=== PATIENT | male | born 1955 | race Two or more races ===

== ENCOUNTER 2019-10-10 19:29 | Inpatient (IN) | payer OTHER ==
[~2019-10-10] VITALS: Ht 170.2 cm; Wt 99.9 kg
[2019-10-10 21:17] LABS: BASOPHIL % 0 % (0-2); PLATELET COUNT 204 x10^3mcL (130-400); RED CELL DISTRIBUTION WIDTH 16.1 % (11.5-14.5)
[2019-10-10 21:21] LABS: CARBON DIOXIDE 22.9 mmol/L (21-32); CREATININE SERUM 1.7 mg/dL (0.7-1.3)
[2019-10-10 21:26] LABS: ALBUMIN 3.6 g/dL (3.4-5.0); BILIRUBIN TOTAL 2.4 mg/dL (0.20-1.00); TOTAL PROTEIN, SERUM 7.9 g/dL (6.4-8.2)
[2019-10-11 00:55] LABS: CHOLESTEROL/HDL RATIO 8.7
[2019-10-11 01:16] LABS: T3 TOTAL 0.97 ng/mL
[2019-10-11 01:21] LABS: FREE T4 1.41 ng/dL (0.76-1.46); FREE THYROXINE INDEX 3.6 ug/dL (1.4-4.5)
--- NOTE | 2019-10-11 01:55 | NUR ---
PT MEDICATED PER MD ORDER SEE EMAR. VITAL SIGNS STABLE. RESPIRATIONS EVEN AND UNLABORED. NO ACUTE DISTRESS NOTED.
--- NOTE | 2019-10-11 02:41 | NUR ---
MEDICATED ORDERED. PT. STILL C/O INTERMITTENT ABDOMINAL PAIN. A/A/O. NO ACUTE DISTRESS NOTED.
--- NOTE | 2019-10-11 02:42 | NUR ---
FOR ADMIT . ALL BELONGINGS WITH PT.
[2019-10-11] MEDS ORDERED: CARDURA4 MG PO (03:19)
[2019-10-11] MEDS ORDERED: LOVASTATIN20 MG PO (03:19)
[2019-10-11] MEDS ORDERED: TRADJENTA5 M1 PO (03:19)
[2019-10-11] MEDS ORDERED: NOR5 PO (03:19)
[2019-10-11] MEDS ORDERED: METFORMIN HCL1000 MG PO (03:20)
[2019-10-11] MEDS ORDERED: METOPROLOL TAR100 MG PO (03:20)
[2019-10-11] MEDS ORDERED: LISINOPRIL40 MG PO (03:20)
[2019-10-11 04:20] LABS: PLATELET COUNT 175 x10^3mcL (130-400)
[2019-10-11 04:21] LABS: BASOPHIL % 0 % (0-2); RED CELL DISTRIBUTION WIDTH 16.3 % (11.5-14.5)
[2019-10-11 04:28] VITALS: BP 148/80
[2019-10-11 04:39] LABS: microscopic required? YES; urine erythrocyte NEGATIVE (NEGATIVE)
[2019-10-11 04:40] LABS: BILIRUBIN TOTAL 2.8 mg/dL (0.20-1.00); CALCIUM 8.4 mg/dL (8.5-10.1); CARBON DIOXIDE 23.5 mmol/L (21-32); CREATININE SERUM 1.8 mg/dL (0.7-1.3); POTASSIUM SERUM 3.9 mmol/L (3.5-5.1); TOTAL PROTEIN, SERUM 6.9 g/dL (6.4-8.2)
--- NOTE | 2019-10-11 04:43 | NUR ---
RECIEVED PT FROM ED. PT IN MILD DISTRESS WITH ABD PAIN 3/10, RADIATING TO THE BACK, INTERMITTING AND SHARP, WILL MEDICATE PER EMAR. A/O X4. TELE #29, NSR. DENIES ANY CHEST PAIN OR PRESSURE. PULSES ARE PRESENT. NO EDEMA NOTED. LUNGS CLEAR IN ALL FEILDS. ON RA, DENIES ANY SOB. EQUAL CHEST RISE AND FALL. BOWEL SOUNDS ARE PRESENT. TENDER ON MID ABD. VOIDS FREELY. SKIN INTACT. IV ON LAC, FLUIDS RUNNING. MRSA OBTAINED. EDUCATED PT ON NPO STATUS. QUESTIONS AND CONCERN ADDRESSED. WILL CONTINUE TO MONITOR PT.
[2019-10-11 04:56] LABS: AMPHETAMINE QUAL UR NONE DETECTED (See below)
--- NOTE | 2019-10-11 06:11 | NUR ---
PT IS RESTING IN BED. STATES PAIN IS STILL THERE 3/10, DULL, BUT IS MORE TOLERABLE AND HE FEELS OK AT THE MOMENT. NO OTHER EVENTS OCCURED DURING SHIFT. PT BEEN KEPT NPO. BED IS AT LOWEST SETTING. CALL LIGHT WITHIN REACH. WILL ENDORSE TO AM NURSE.
--- NOTE | 2019-10-11 07:15 | NUR ---
RECIEVED REPORT FROM NOC NURSE. PATIENT IN BED AWAKE ALERT AND ORIENTED. ABLE TO MAKE NEEDS KNOWN. PATIENT REPORTS ABD PAIN UPON PALPATION. PATIENT CONTINUES TO BE NPO AND IS RECIEVED NS FLUIDS AT 150/HOUR. PATIENT CONTINUES TO REMAIN NPO. BED IN THE LOW POSITION. CALL LIGHT WITHIN REACH. PATIENT AWARE OF NPO STATUS. SAFETY PRECAUTIONS IN PLACE. WILL CONTINUE TO MONITOR.
[2019-10-11 08:29] VITALS: BP 152/102
--- NOTE | 2019-10-11 09:22 | NUR ---
CONSENT SIGNED FOR SURGERY AND PLACED IN PATIENT'S CHART.
[2019-10-11 12:29] VITALS: BP 174/84
--- NOTE | 2019-10-11 15:00 | NUR ---
MONOLOGIST CALLED THAT THE PATIENT'S HR WENT TO 170'S. WENT TO CHECK THE PATIENT AND SAW PATIENT TRYING TO SIT UP AT THE EDGE OF THE BED AND SOB. O2 WAS NASAL CANNULA CAME OFF. ASSISTED BACK TO BED AND AND PUT THE O2 BACK. ASKED WHERE HE WAS AND STATED THAT HE'S IN THE HOSPITAL. V/S 100/59 SAT.97 AT O2 2 L N/C BUT PATIENT STILL SOB. CHANGED TO 100% NON REBREATHER. CALLED TO AND MADE AWARE.
--- NOTE | 2019-10-11 15:30 | NUR ---
CHECKED PATIENT AND NO SIGNS OF SOB AND AND REPORT GIVEN TO BENNY DE SANTIAGO IN CHARGE OF THE PATIENT. MONITOR SHOWS [address]
[2019-10-11 16:33] VITALS: BP 118/76
--- NOTE | 2019-10-11 18:21 | NUR ---
PATIENT CURRENTLY OBSERVED SITTING IN BED. FRIEND SITTING AT BEDSIDE. PATIENT AWAKE ALERT AND ORIENTED. NO REPORT OF PAIN AT THIS TIME. ZOSYN INFUSING TO LAC AT 100/HOUR. BP CURRENTLY AT 111/67 MAP OF (77). WILL ENDORSE CARE TO NIGHT NURSE.
--- NOTE | 2019-10-11 19:30 | NUR ---
PT IS A/O x4. TELE #29, NSR. DENIES ANY CHEST PAIN OR PRESSURE. PULSES ARE PRESENT. NO EDEMA NOTED. LUNGS CLEAR IN ALL BETANCOURT. ON RA, DENIES ANY SOB. EQUAL CHEST RISE AND FALL. NO SIGN OF RESP DISTRESS. BOWEL SOUNDS ARE PRESENT x4. COMPLAIN OF ABD TENDERNESS WHEN MOVED OR WHEN PALPATED. VOIDS FREELY. SKIN IS WARM AND INTACT. DENIES ANY PAIN AT THIS TIME. IV ON LAC INTACT AND PATENT. NO SIGN OF INFILTRATION OR IRRITATION. BED IS AT LOWEST SETTING. CALL LIGHT WITHIN REACH. WILL CONTINUE TO MONITOR.
[2019-10-11 21:17] VITALS: BP 107/71
--- NOTE | 2019-10-12 01:22 | NUR ---
PT IS RESTING IN BED. STATES ABD PAIN IS MORE TOLERABLE RATING AT A 2/10. IV INTACT AND PATENT. BED IS AT LOWEST SETTING. CALL LIGHT WITHIN REACH. WILL CONTINUE TO MONTIOR.
[2019-10-12 05:07] VITALS: BP 150/94
[2019-10-12 06:24] LABS: PLATELET COUNT 138 x10^3mcL (130-400)
[2019-10-12 06:34] LABS: CALCIUM 8.1 mg/dL (8.5-10.1); CARBON DIOXIDE 24.6 mmol/L (21-32); CREATININE SERUM 1.7 mg/dL (0.7-1.3); MAGNESIUM 1.9 mg/dL (1.8-2.4); PHOSPHOROUS 3.1 mg/dL (2.5-4.9); POTASSIUM SERUM 3.6 mmol/L (3.5-5.1)
[2019-10-12 06:47] LABS: RED CELL DISTRIBUTION WIDTH 16.3 % (11.5-14.5)
--- NOTE | 2019-10-12 07:03 | NUR ---
PT IS RESTING IN BED. CRITICAL WBC OF 21 WAS GIVEN TO MD GAY. NO ACUTE EVENT OCCURED AT NIGHT. BED IS AT LOWEST SETTING. CALL LIGHT WITHIN REACH. WILL ENDORSE TO AM NURSE.
--- NOTE | 2019-10-12 07:30 | NUR ---
RECEIVED PT IN BED A/A/OX4 DENIES JHAVERI. RESP EVEN AND UNLABORED FOUND ON O2 AT 2L/MON VIA NC. INITIATED TITRATION OFF O2 BY DECREASING O2 TO 1L/MIN. NSR ON TELE HR 75. DENIES ANY CP/PRESSURE AT THIS TIME. NO EDEMA NOTED WITH IVF TO LAC. NPO, S/P ERCP POD1 WITH ELEVATED LIPASE. ABD DISTENDED AND TENDER WITH HYPOACTIVE BS X4. DENIES ANY N/V AT THIS TIME. VOIDING FREELY USES URINAL NOTED WITH DARK IMELDA URINE. ABLE TO REPOSITION SELF IN BED. DECREASE ACTIVITY D/T C/O INCREASE PAIN WITH MOBILITY. ENCOURAGE INCREASING ACTIVITY. CALL LIGHT IN REACH NEEDS ATTENDED TO.
[2019-10-12 08:40] VITALS: BP 152/89
--- NOTE | 2019-10-12 10:00 | NUR ---
PT C/O PAIN TO ABD 04/13, MEDICATED PER EMAR WITH NORCO. CALL LIGHT IN REACH NEEDS ATTENDED TO.
[2019-10-12 10:03] LABS: BAND NEUTROPHIL 12 % (0-10); BASOPHIL 0 % (0-2); MONOCYTE 7 % (0-7); SEGMENTED NEUTROPHILS 79 % (37-75); rbc morphology (normal/abnorm) ABNORMAL (NORMAL)
[2019-10-12 10:04] LABS: PLATELET MORPHOLOGY PLATELETS DECREASED; ovalocyte/elliptocyte 1+; tear drop cell (dacryocyte) 1+
[2019-10-12 12:35] VITALS: BP 155/97
--- NOTE | 2019-10-12 14:25 | NUR ---
PT RESTING AT THIS TIME. DENIES DISCOMFORT. CALL LIGHT IN REACH NEEDS ATTENDED TO.
--- NOTE | 2019-10-12 16:00 | NUR ---
PT C/O MOD PAIN 04/13 TO ABD AREA. MEDICATED WITH NORCO PO PER EMAR. DENIES ANY N/V AT THIS TIME. PT WITH ONCREASE IN PAIN D/T INCREASE IN ACTIVITY. CALL LIGHT IN REACH NEEDS ATTENDED TO.
[2019-10-12 16:56] VITALS: BP 98/64
[2019-10-12 16:58] VITALS: BP 145/88
--- NOTE | 2019-10-12 18:28 | NUR ---
PT RESTING IN BED AT THIS TIME. TOLERATED CLEAR LIQUID MEALS ALL DAY. NO EPISODES OF N/V. MEDICATED FOR PAIN X2. PT AMBULATED TO BR ATLEAST 4 TIMES DURING SHIFT, TOLERATED ACTIVITY WELL. CALL LIGHT IN REACH NEEDS ATTENDED TO.
--- NOTE | 2019-10-12 19:15 | NUR ---
RECEIVED REPORT FROM BHARTI. ASSUMING ALL CARE
--- NOTE | 2019-10-12 19:41 | NUR ---
RECEIVED PT LAYING IN BED. PT IS A/OX4. SPEECH IS CLEAR. ABLE TO MAKE NEEDS KNOWN/FOLLOW SIMPLE COMMANDS. BREATHING IS E/U ON RA. LUNGS SOUND CLEAR BILAT. SYMMETRICAL CHEST EXPANSION NOTED. DENIES ANY SOB. PT ON TELE #29 READING NSR. S1/S2 HEART SOUNDS AUSCULTATED. CHEST WALL EQUAL AND SYMMETRICAL. DENIES ANY CP. PALPABLE PULSES X4 EXTREMITIES. SKIN IS WARM AND DRY. NO EDEMA NOTED. LAC IV INTACT, INFUSING NS @ 150 ML/HR. CAP REFILL < 3 SECS. GENERALIZED WEAKNESS. ACTIVE FULL ROM X4 EXTREMITIES. PT IS ON CLEAR LIQUID DIET. DENIES ANY N/V. ABD IS SOFT/DISTENDED. BOWEL SOUNDS ACTIVE X4 QUADRANTS. NO BM NOTED. PT VOIDS FREELY VIA URINAL. SKIN IS INTACT. PT ABLE TO REPOSITION SELF INDEPENDENTLY. PT IS CALM AND COOPERATIVE. BED IN LOW POSITION. CALL LIGHT IN REACH. WILL CONT TO MONITOR
--- NOTE | 2019-10-12 20:52 | NUR ---
PT C/O ACHING GENERALIZED ABD PAIN RATED 7/10. PT MEDICATED WITH MORPHINE 1 MG IVP PER EMAR. WILL CONT TO MONITOR.
[2019-10-12 20:59] VITALS: BP 136/87
--- NOTE | 2019-10-12 21:30 | NUR ---
PT ASSISTED TO THE RESTROOM AT THIS TIME. PT VOIDED IMELDA COLORED URINE. PT ASSISTED BACK IN BED
--- NOTE | 2019-10-13 00:11 | NUR ---
PT C/O ACHING ABD PAIN RATED 6/10. PT MEDICATED WITH NORCO PER EMAR.
[2019-10-13 05:48] VITALS: BP 147/102
--- NOTE | 2019-10-13 06:20 | NUR ---
PT C/O ACHING ABD PAIN RATED 6/10. PT MEDICATED WITH NORCO PER EMAR
[2019-10-13 06:42] LABS: BASOPHIL % 0.1 % (0-2); BILIRUBIN DIRECT 1.47 mg/dL (0.0-0.2); BILIRUBIN TOTAL 1.98 mg/dL (0.20-1.00); CALCIUM 7.8 mg/dL (8.5-10.1); CARBON DIOXIDE 24.8 mmol/L (21-32); CREATININE SERUM 1.3 mg/dL (0.7-1.3); PLATELET COUNT 139 x10^3mcL (130-400); POTASSIUM SERUM 3.1 mmol/L (3.5-5.1); TOTAL PROTEIN, SERUM 6.9 g/dL (6.4-8.2)
[2019-10-13 06:49] LABS: ALBUMIN 2.6 g/dL (3.4-5.0)
[2019-10-13 07:05] LABS: RED CELL DISTRIBUTION WIDTH 16.4 % (11.5-14.5)
--- NOTE | 2019-10-13 07:09 | NUR ---
REPORT GIVEN TO BHARTI RN. ALL QUESTIONS/CONCERNS ADDRESSED. ENDORSING ALL CARE
--- NOTE | 2019-10-13 07:20 | NUR ---
RECEIVED PT IN BED A/A/OX4 DENIES JHAVERI. RESP EVEN AND UNLABORED WITH CLEAR BS BILAT. DENIES ANY SOB/CP/PRESSURE AT THIS TIME. NO EDEMA NOTED WITH IVF TO LAC. ABD SOFT, DISTENDED, NONTENDER WITH ACTIVE BS X4. DENIES ANY N/V. +FLATUS, S/P ERCP POD2. TOLERATING CLEAR LIQUID DIET. AMBULATORY WITH STEADY GAIT REQUIRES SOME ASSISTANCE GETTING OOB. CALL LIGHT IN REACH NEEDS ATTENDED TO.
--- NOTE | 2019-10-13 08:30 | NUR ---
PAGE GATE SENT TO DR. GAY TO NOTIFY OF K+ 3.1, AWAITING ORDERS.
[2019-10-13 10:30] VITALS: BP 159/95
--- NOTE | 2019-10-13 10:45 | NUR ---
PT RESTING WITH EYES CLOSED, NO APPARENT DISCOMFORT OR DISTRESS. CALL LIGHT IN REACH NEEDS ATTENDED TO.
[2019-10-13 11:59] VITALS: BP 151/99
--- NOTE | 2019-10-13 12:15 | NUR ---
PT C/O PAIN TO ABD AT 6, MEDICATED WITH NORCO PO PER EMAR. PT STATED HE HAS BEEN MOVING AROUND MORE TODAY INCREASING HIS DISCOMFORT. CALL LIGHT IN REACH.
--- NOTE | 2019-10-13 12:50 | NUR ---
DR. GAY REMINDED OF K+ 3.1, STATED HE WOULD ORDER COVERAGE. AWAITING FURTHER ORDERS.
--- NOTE | 2019-10-13 14:30 | NUR ---
PT RESTING AT THIS TIME WITH EYES CLOSED. DENIES ANY DISCOMFORT, CALL LIGHT IN REACH NEEDS ATTENDED TO.
--- NOTE | 2019-10-13 16:15 | NUR ---
NOTED IV TO RFA WAS INFILTRATED. IV D/C'D CATHETER INTACT. NEW IV INSERTED TO RH 22G. PT TOLERATED PROCEDURE WELL.
[2019-10-13 16:44] VITALS: BP 143/86
--- NOTE | 2019-10-13 18:20 | NUR ---
SENT [employer] MESSAGE TO DR. GAY REGARDING K+3.1 THAT HAS NOT BEEN COVERED. AWAITING ORDERS.
--- NOTE | 2019-10-13 19:13 | NUR ---
PT C/O 5/10PAIN TO ABD MEDICATED WITH NORCO PO PER EMAR.
--- NOTE | 2019-10-13 19:30 | NUR ---
REC'D REPORT FROM BHARTI RN TO ASSUME CARE. PT A/0 X4, SPEECH CLEAR AND APPRORPRIATE. EENT FREE OF DISCHARGE. RESPS E/U ON ROOM AIR. CHEST RISE EQUAL AND SYMMETRICAL. TELE MONITOR #[address] SHOWING NSR. DENIES ANY CP, SYNCOPE, OR DIZZINESS. PULSES PALPABLE X4. CAP REFILL < 3 SECS. NO EDEMA NOTED. IV TO RHAND G22 INTACT AND PATENT. IVF NS INFUSING @ 150ML/HR. GEN WEAKNESS D/T PAIN. REQUIRES ASSISTANCE WITH AMBULATING. ON CLEAR LIQUID DIET, TOLERATING WELL. ABD DISTENDED, SOFT, TENDER TO TOUCH TO BLQ. BOWEL SOUNDS ACTIVE. DENIES ANY N/V/D. PT VOIDS FREELY WITH BRP. DENIES ANY URINARY SYMPMTOMS. SKIN INTACT. WARM DRY TO TOUCH. CALM AND COOPERATIVE. VISITOR AT BEDSIDE. ALL NEEDS MET AT THIS TIME. ENCOURAGED TO CALL FOR ANY ASSISTANCE WITH CALL LIGHT. CALL LIGHT WITHIN REACH. WILL CONTINUE TO MONITOR.
[2019-10-13 20:11] VITALS: BP 158/102
--- NOTE | 2019-10-13 22:00 | NUR ---
PT AMBULATED TO BATHROOM WITH ASSIST TO VOID. PT AMBULATED BACK TO BED SAFELY WITH NO INCIDENT.
--- NOTE | 2019-10-14 00:30 | NUR ---
PT AWAKE, PT GIVEN POTASSIUM 40MEQ PO PER MD ORDER. PT TOLERATED WELL.
--- NOTE | 2019-10-14 01:42 | NUR ---
PT WITH C/O ITCHINESS TO LOWER BACK AREA, HYDROCORTISONE CREAM APPLIED WITH EFFECTIVENESS.
[2019-10-14 04:30] VITALS: BP 154/91
--- NOTE | 2019-10-14 07:20 | NUR ---
REPORT TAKEN FROM TEXTILE CONVERSION MANAGER NURSE AT THE BEDSIDE. PATIENT AWAKE AND ALERT, REPORTS 4 OF 10 LOWER ABD PAIN. PATIENT ADVISED TO CALL NURSE FOR ASSISTANCE, WILL CONTINUE TO MONITOR.
[2019-10-14 08:33] VITALS: BP 152/96
[2019-10-14 08:37] LABS: BASOPHIL % 0.1 % (0-2); PLATELET COUNT 164 x10^3mcL (130-400)
[2019-10-14 08:54] LABS: RED CELL DISTRIBUTION WIDTH 16.7 % (11.5-14.5)
[2019-10-14 09:05] LABS: ALKALINE PHOSPHATASE 245 U/L (46-116); ALT/SGPT 192 U/L (16-63); AST/SGOT 28 U/L (15-37); BILIRUBIN DIRECT 0.85 mg/dL (0.0-0.2); CALCIUM 7.7 mg/dL (8.5-10.1); CARBON DIOXIDE 22.5 mmol/L (21-32); CHLORIDE SERUM 108 mmol/L (98-107); GFR1 > 60 mL/min; GLUCOSE SERUM 146 mg/dL (74-106); LIPASE 99 IU/L (73-393); MAGNESIUM 1.8 mg/dL (1.8-2.4); PHOSPHOROUS 1.2 mg/dL (2.5-4.9); POTASSIUM SERUM 3.2 mmol/L (3.5-5.1); SODIUM SERUM 140 mmol/L (136-145); TOTAL PROTEIN, SERUM 6.6 g/dL (6.4-8.2)
[2019-10-14 09:14] LABS: ALBUMIN 2.3 g/dL (3.4-5.0)
[2019-10-14 12:06] VITALS: BP 139/94
[2019-10-14] MEDS ORDERED: NORCO1 TA2 PO (12:50)
[2019-10-14 14:22] VITALS: BP 139/94
[2019-10-14] MEDS ORDERED: LEVAQUIN750 MG PO (14:43)
[2019-10-14] MEDS ORDERED: FLA500 PO (14:44)
--- NOTE | 2019-10-14 15:59 | NUR ---
PATIENT SIGNED DISCHARGE PAPERWORK AT THIS TIME, GIVEN TO CHANCE TO ASK QUESTIONS, AND VERBALIZED UNDERSTANDING OF ALL FOLLOW UP CARE DIRECTIONS. PATIENT VERBALIZED THAT HE HAS NO RIDE HOME AT THIS TIME, HE WAS ADVISED TO CALL THE NURSE WHEN HE IS ABLE TO GET A RIDE AND HE WILL BE COMPLETELY DISCHARGED AT THAT TIME.
--- NOTE | 2019-10-14 17:02 | NUR ---
PATIENT TAKEN DOWN TO EXIT AT THIS TIME, TELE RETURNED TO STATION.
== END 2019-10-14 17:04 | disposition home or self-care (01) | DRG 871 ==
LOC: ED 19:29 → DU 10-11 02:19
PROVIDERS: Emergency Medicine; Internal Medicine; ADMIT Internal Medicine
PROC: 0FC98ZZ Extirpation of Matter from Common Bile Duct, Via Natural or Artificial Opening Endoscopic (ICD-10-PCS; principal; 2019-10-11 10:30)
PROC: BF10YZZ Fluoroscopy of Bile Ducts using Other Contrast (ICD-10-PCS; 2019-10-11 10:30)
DX: A41.9 Sepsis, unspecified organism (principal); K85.10 Biliary acute pancreatitis without necrosis or infection; N17.0 Acute kidney failure with tubular necrosis; K91.86 Retained cholelithiasis following cholecystectomy; I10 Essential (primary) hypertension; E11.9 Type 2 diabetes mellitus without complications; E78.5 Hyperlipidemia, unspecified; N40.0 Benign prostatic hyperplasia without lower urinary tract symptoms; R74.0 Nonspecific elevation of levels of transaminase and lactic acid dehydrogenase [LDH]; Z79.84 Long term (current) use of oral hypoglycemic drugs; Y83.6 Removal of other organ (partial) (total) as the cause of abnormal reaction of the patient, or of later complication, without mention of misadventure at the time of the procedure; Y92.009 Unspecified place in unspecified non-institutional (private) residence as the place of occurrence of the external cause
CPT/HCPCS: 43262; 82962; 83880; 84439; C1769; G0378; J0360; J1610; J2250; J2270; J2405; J2543; J2704; J3010; J7030; Q0092; Q9967

== ENCOUNTER 2019-10-14 20:18 | Emergency (ER) | payer SELFPAY ==
[~2019-10-14] VITALS: Ht 170.2 cm; Wt 111.1 kg
[~2019-10-14 20:18] MED LIST: CARDURA4 MG PO; FLA500 PO; LEVAQUIN750 MG PO; LISINOPRIL40 MG PO; LOVASTATIN20 MG PO; METFORMIN HCL1000 MG PO; METOPROLOL TAR100 MG PO; NOR5 PO; NORCO1 TA2 PO; TRADJENTA5 M1 PO
[2019-10-14 20:20] VITALS: Ht 170.2 cm; Wt 111.1 kg
[2019-10-14 21:03] LABS: PLATELET COUNT 169 x10^3mcL (130-400)
[2019-10-14 21:04] LABS: RED CELL DISTRIBUTION WIDTH 16.1 % (11.5-14.5)
[2019-10-14 21:25] LABS: BAND NEUTROPHIL 3 % (0-10); METAMYELOCTE 1 % (0-2); MONOCYTE 2 % (0-7); PLATELET MORPHOLOGY PLATELETS NORMAL; SEGMENTED NEUTROPHILS 86 % (37-75); rbc morphology (normal/abnorm) NORMAL (NORMAL)
[2019-10-14 22:08] LABS: CALCIUM 7.8 mg/dL (8.5-10.1); CARBON DIOXIDE 22.3 mmol/L (21-32); CHLORIDE SERUM 106 mmol/L (98-107); CREATININE SERUM 1.1 mg/dL (0.7-1.3); GFR1 > 60 mL/min; GLUCOSE SERUM 120 mg/dL (74-106); SODIUM SERUM 139 mmol/L (136-145)
[2019-10-14 22:14] LABS: ALKALINE PHOSPHATASE 228 U/L (46-116); ALT/SGPT 165 U/L (16-63); AST/SGOT 26 U/L (15-37); BILIRUBIN TOTAL 1.14 mg/dL (0.20-1.00); LIPASE 75 IU/L (73-393); TOTAL PROTEIN, SERUM 6.8 g/dL (6.4-8.2)
[2019-10-14 22:15] LABS: ALBUMIN 2.3 g/dL (3.4-5.0)
[2019-10-14 22:23] VITALS: BP 159/94
== END 2019-10-14 22:23 | disposition home or self-care (01) ==
LOC: ED 20:18
PROVIDERS: Emergency Medicine
DX: K85.90 Acute pancreatitis without necrosis or infection, unspecified (principal); I10 Essential (primary) hypertension; E11.9 Type 2 diabetes mellitus without complications; E78.5 Hyperlipidemia, unspecified
CPT/HCPCS: 36415